=== PATIENT | female | born 1945 | race Caucasian/White ===

== ENCOUNTER → 2021-06-10 | Outpatient (CLI) | payer OTHER ==
[~2021-06-10] MED LIST: ADULT LOW DOSE81 MG PO; AMIODARONE HCL400 MG PO; CALCIUM CITRAT1 EA14 PO; CARDIZEM CD240 MG PO; CENTRUM SILVER1 EAC4 PO; CLARITIN10 M2 PO; CLARITIN10 MG PO; CVS OMEGA-3 KR1 EACH PO; CYCLOBENZAPRINE10 MG PO; CYCLOBENZAPRINE5 MG PO; DILTIAZEM 24HR120 M2 PO; ELIQUIS5 MG PO; IBUPROFEN 800800 M1 PO; KLOR-CON 1010 MEQ PO; KRILL OIL500 MG PO; LASIX 20 MG TAB20 MG PO; LASIX 40 MG TAB40 M2 PO; LISINOPRIL-HCT1 EAC2 PO; LISINOPRIL20 MG PO; LOPRESSOR 50 MG50 M1 PO; LOVASTAT40 PO; LOVENOX100 MG/1 M SQ; MUCUS RELIEF400 MG PO; NORCO 5-325 TA1 EACH PO; OMEPRAZOLE40 MG PO; POTASSIUM20 PO; PRINIVIL10 MG PO; SOTALOL80 MG PO; TOPROL XL50 MG PO; TRAMADOL 50 MG50 MG PO; ULTRAM 50MG TAB50 MG; VITAMIN D-32000 UNIT PO; VITAMIN D35000 UNI1 PO; VITAMIN D5000 UNIT PO; VITAMINC500 PO
== END ==
LOC: HYPER 07:45
PROVIDERS: ATTEND Specialist
DX: I87.333 Chronic venous hypertension (idiopathic) with ulcer and inflammation of bilateral lower extremity (principal); L97.822 Non-pressure chronic ulcer of other part of left lower leg with fat layer exposed; L97.811 Non-pressure chronic ulcer of other part of right lower leg limited to breakdown of skin; I89.0 Lymphedema, not elsewhere classified; I50.9 Heart failure, unspecified; E66.9 Obesity, unspecified; K21.9 Gastro-esophageal reflux disease without esophagitis; F41.9 Anxiety disorder, unspecified; Z95.0 Presence of cardiac pacemaker; Z79.899 Other long term (current) drug therapy; Z96.653 Presence of artificial knee joint, bilateral; Z68.32 Body mass index [BMI] 32.0-32.9, adult